=== PATIENT | male | born 1990 | race Hispanic/Latino ===

== ENCOUNTER 2018-05-12 15:39 | Emergency (ER) | payer OTHER ==
[2018-05-12 15:45] VITALS: BP 106/59; PULSE 75; RESP 18; TEMP 98.8; O2SAT 98
--- NOTE | 2018-05-12 15:57 | ED PDOC ---
Lower Extremity Pain/Injury Time Seen by Provider: 05/12/18 15:46 Chief Complaint (Nursing): Lower Extremity Problem/Injury Chief Complaint (Provider): Toe pain History Per: Patient History/Exam Limitations: no limitations Onset/Duration Of Symptoms: Hrs Current Symptoms Are (Timing): Still Present Additional Complaint(s): 28 year old male presents to the ED complaining of left great toe pain after tripping down the stairs today. Patient denies any other injuries as a result of fall. No meds taken for pain relief prior to arrival. PMD: Dr. Devlin, [place], [place] - Ankle/Foot Description Of Injury: Fell Past Medical History Reviewed: Historical Data, Nursing Documentation, Vital Signs Vital Signs: Last Vital Signs Temp 98.8 F 05/12/18 15:42 Pulse 75 05/12/18 15:42 Resp 18 05/12/18 15:42 BP 106/59 L 05/12/18 15:42 Pulse Ox 98 05/12/18 15:42 - Medical History PMH: No Chronic Diseases - Surgical History Surgical History: No Surg Hx - Family History Family History: States: No Known Family Hx - Living Arrangements Living Arrangements: With Friends/Others - Social History Current smoker - smoking cessation education provided: No Alcohol: Social Drugs: Denies - Home Medications Home Medications: Ambulatory Orders Medication Instructions Recorded Ibuprofen [Motrin Tab] 800 mg PO Q8 PRN #20 tab 05/12/18 - Allergies Allergies/Adverse Reactions: Allergies Allergy/AdvReac Type Severity Reaction Status Date / Time No Known Allergies Allergy Verified 05/12/18 15:42 Review of Systems ROS Statement: Except As Marked, All Systems Reviewed And Found Negative Musculoskeletal: Positive for: Other (Left great toe pain) Physical Exam - Reviewed Nursing Documentation Reviewed: Yes Vital Signs Reviewed: Yes - Physical Exam Appears: Positive for: Well, Non-toxic, No Acute Distress Skin: Positive for: Normal Color. Negative for: Rash Eye Exam: Positive for: Normal appearance Extremity: Positive for: Normal ROM, Tenderness (and ecchymosis to left great toe region, full rom of left great toe with pain, No subungual hematoma, Left ankle and remaining toes are nontender), Other Neurologic/Psych: Positive for: Alert, Oriented. Negative for: Motor/Sensory Deficits - ECG O2 Sat by Pulse Oximetry: 98 (RA) Pulse Ox Interpretation: Normal - Other Rad Left foot x-ray X-Ray: Interpreted by Me, Viewed By Me X-Ray Interpretation: intrarticular fracture to distal first phalanx Medical Decision Making Medical Decision Making: Initial Impression: 28 y/o with left great toe pain Initial Plan: Left foot X-ray Pain meds declined 4:35 pm: Dr. Farfan, podiatry resident at bedside to see patient. [employer] tape and ortho shoe applied. Crutches given and patient was taught on proper use of crutches with no weight bearing. Rx motrin given. Patient was referred to Dr. Hayes for follow up. Scribe Attestation: Documented by Roc Zamudio acting as a scribe for Tiara LINDQUIST. Provider Scribe Attestation: All medical record entries made by the Scribe were at my direction and personally dictated by me. I have reviewed the chart and agree that the record accurately reflects my personal performance of the history, physical exam, medical decision making, and the department course for this patient. I have also personally directed, reviewed, and agree with the discharge instructions and disposition. Disposition - Clinical Impression Clinical Impression: Toe fracture - Patient ED Disposition Is Patient to be Admitted: No Counseled Patient/Family Regarding: Studies Performed, Diagnosis, Need For Followup, Rx Given - Disposition Referrals: Asif Watt III, MD [Staff Provider] - Disposition: Routine/Home Disposition Time: 17:44 Condition: STABLE Additional Instructions: Ice, rest and elevate affected area. Use crutches when walking, do not bear weight on affected foot. Take rx meds as directed as needed for pain. Follow up next week with orthopedist. Prescriptions: Ibuprofen [Motrin Tab] 800 mg PO Q8 PRN #20 tab PRN Reason: Pain, Moderate (4-7) Instructions: Toe Fracture (DC), How to Use Crutches, Going Up and Down Curbs or Stairs With a Walker or Crutches Forms: [employer] (Danish)
--- NOTE | 2018-05-12 16:28 | RAD ---
Date of service: 05/12/2018 PROCEDURE: Left Foot Radiographs. HISTORY: trauma COMPARISON: None. FINDINGS: BONES: Fracture of the base of the 1st distal phalanx with extension to the interphalangeal articular surface. JOINTS: Normal. SOFT TISSUES: Normal. OTHER FINDINGS: None. IMPRESSION: Intraarticular fracture of the base of the 1st distal phalanx.
--- NOTE | 2018-05-12 17:12 | CP.PCM.CON ---
History of Present Illness - History of Present Illness History of Present Illness: Podiatry consult note for attending Dr. Watt 28 year old male with no significant PMHx seen and evaluated in the ED due to complaints of pain to the left great toe. Patient states he tripped on the staircase and rolled his toe. Patient denies any other complaints or injuries to his left leg. Patient reports this occurred around noon today, and patient noticed several hours later as the pain worsened. Patient denies taking any medication for pain prior to ED arrival and denies any constitutional symptoms PMHx: denied by patient PSHx: denied by patient Allergies: NKDA Medications: denied by patient Review of Systems - Review of Systems All systems: reviewed and no additional remarkable complaints except Review of Systems: As per HPI Past Patient History - Past Social History Alcohol: Social Drugs: Denies - PSYCHIATRIC Hx Substance Use: No - SURGICAL HISTORY Hx Surgeries: No - ANESTHESIA Hx Anesthesia: No Meds Home Medications: Home Medication List Medication Instructions Recorded Confirmed Type Ibuprofen [Motrin Tab] 800 mg PO Q8 PRN #20 tab 05/12/18 Rx Allergies/Adverse Reactions: Allergies Allergy/AdvReac Type Severity Reaction Status Date / Time No Known Allergies Allergy Verified 05/12/18 15:42 Physical Exam - Constitutional Appears: Well, Non-toxic, No Acute Distress - Head Exam Head Exam: ATRAUMATIC, NORMOCEPHALIC - Extremities Exam Additional comments: Left Lower Extremity Exam VASC: DP and PT 2/4 palpable, CFT less than 3 seconds, CFT present at the hallux , TG warm to cool, no increased change in temperature noted, minimal swelling to the left hallux NEURO: Epicritic and protective sensation intact DERM: ecchymosis noted proximal to the hallucal nail, and plantarly at the IPJ, minimal swelling noted, minimal subungual hematoma noted at the proximal most aspect of the nail, no nail bed laceration visualized, hallucal nail intact, no open wounds, no clinical signs of infection MSK: pain with range of motion of the IPJ and MTPJ, pain on palpation of the left toe at the level of the IPJ, MSK 5/5 of the everters, dorsiflexors, and plantarflexers - Neurological Exam Neurological exam: Alert, Oriented x3 - Psychiatric Exam Psychiatric exam: Normal Affect, Normal Mood Results - Vital Signs Recent Vital Signs: Last Vital Signs Temp 98.8 F 05/12/18 15:42 Pulse 75 05/12/18 15:42 Resp 18 05/12/18 15:42 BP 106/59 L 05/12/18 15:42 Pulse Ox 98 05/12/18 16:38 Assessment & Plan - Assessment and Plan (Free Text) Assessment: 28 year old male with no significant PMHx seen and evaluated in the ED due to complaints of pain to the left great toe Plan: Patient seen and evaluated at bedside Plan discussed with attending Dr. Watt Left Foot X-ray (05/12/18)- fracture of the base of the left hallucal distal phalanx wit extension to the interphalangeal articular surface Chart, labs and vitals reviewed Reviewed with patient left foot imaging and etiology of fracture/healing process Patient hallux michael splinted to the 2nd digit, and patient provided with surgical shoe and crutches Patient strictly advised to ambulate in a surgical shoe until visit to Dr. Watt, and to bear weight to left heel Patient denied pain medication in the ED, Rx Ibuprofen upon discharge Patient provided with information to follow up in Dr. Watt's [place] office as patient lives in [place] Patient demonstrated verbal understanding and all patient questions answered to satisfaction Patient advised to return to the ED if pain worsens Thank you for the consult - Date & Time Date: 05/12/18 Time: 17:55
== END 2018-05-12 18:09 | disposition home or self-care (01) ==
LOC: H.ER 15:39
DX: S92.422A Displaced fracture of distal phalanx of left great toe, initial encounter for closed fracture (principal); W10.9XXA Fall (on) (from) unspecified stairs and steps, initial encounter